=== PATIENT | female | born 1945 | race Caucasian/White ===

== ENCOUNTER → 2016-12-25 | Outpatient (CLI) | payer MEDICARE, MEDICAID ==
[2016-12-25 11:51] LABS: ABSOLUTE RETICS # 0.0855 T/MM3 (0.0300-0.0900); BASOPHILS % (AUTO) 0.3 % (0-2); EOSINOPHILS % (AUTO) 0.5 % (0-4); HGB - HEMOGLOBIN 9.6 GM/DL (12-16); IMMATURE GRANULOCYTE # (AUTO) 0.05 T/MM3 (0.00-0.03); IMMATURE GRANULOCYTE % (AUTO) 0.7 % (0.0-0.5); LYMPHOCYTES # (AUTO) 1.1 T/MM3 (1-4.8); MEAN CORPUSCULAR HGB 28.4 UUG (26-34); MEAN CORPUSCULAR VOLUME 88.8 UM3 (80-100); MEAN PLATELET VOLUME 9.8 UM3 (9.4-12.4); MONOCYTES # (AUTO) 0.6 T/MM3 (0-0.8); MONOCYTES % (AUTO) 8.1 % (0-9.0); NEUTROPHILS #(AUTO)-ABSOLUTE 5.8 T/MM3 (1.8-7.7); NEUTROPHILS % (AUTO) 76.4 % (33-66); RED BLOOD COUNT 3.38 M/MM3 (4.00-5.20); RETICULOCYTE % 2.5 % (0.6-1.7); RETICULOCYTE HGB 32.7 PG (30.8-36.6); WBC - WHITE BLOOD COUNT 7.6 T/MM3 (4.5-11.0)
[2016-12-25 12:09] LABS: C-REACTIVE PROTEIN 60.6 MG/L (0-9)
== END ==
LOC: LAB 11:16
PROVIDERS: ATTEND Internal Medicine Hematology & Oncology
DX: D64.9 Anemia, unspecified (principal); Z95.2 Presence of prosthetic heart valve
CPT/HCPCS: 36415; 83880; 85025; 85045; 85652; 86140